=== PATIENT | male | born 2000 | race Two or more races ===

== ENCOUNTER 2018-09-20 21:26 | Emergency (ER) | payer OTHER ==
[2018-09-20] MEDS ORDERED: EPINEPHRINE INJ/PF 1 MG/1 ML AMPULE IM ONE (21:42)
[2018-09-20] MEDS ORDERED: NORMAL SALINE 1000 ML 1,000 ML IV ONE (21:43)
[2018-09-20] MEDS ORDERED: METHYLPREDNISOLONE INJ 125 MG/2 ML SDV IV ONE (21:43)
[2018-09-20] MEDS ORDERED: FAMOTIDINE INJ/PF 20 MG/2 ML SDV IV ONE (21:43)
--- NOTE | 2018-09-20 21:48 | ER Document Report ---
ED Medical Screen (RME) - General Chief Complaint: Allergic Reaction Stated Complaint: BEE STING Time Seen by Provider: 09/20/18 21:39 Notes: Pt. is a 18 y/o male presents to the emergency department for allergic reaction. Patient states prior to arrival to the emergency department he was stung by a bee in his right hand. Patient states he continues with generalized redness and hives all over his trunk and neck. Patient states his ears feel "full" and he also has some itching in his throat. Patient states he has had a reaction to bee sting before. States he never had to get epinephrine. LUNGS: Clear to auscultation bilaterally, no wheezes, rales, or rhonchi. No respiratory distress. Epinephrine IM ordered in triage. Charge nurse Alejandra notified. I have greeted and performed a rapid initial assessment of this patient. A com prehensive ED assessment and evaluation of the patient, analysis of test results and completion of the medical decision making process will be conducted by additional ED providers. I have specifically instructed the patient or family members with the patient to immediately return to any nursing staff should anything change in the patient's condition or with their chief complaint. This medical record was dictated with voice recognizing software. There may be grammatical, syntax errors that are unintended. TRAVEL OUTSIDE OF THE [place] IN LAST 30 DAYS: No
--- NOTE | 2018-09-20 22:42 | ER Document Report ---
ED Allergic Reaction - General Chief Complaint: Allergic Reaction Stated Complaint: BEE STING Time Seen by Provider: 09/20/18 21:39 Notes: Patient is a 18-year-old male that comes to the emergency department for chief complaint of allergic reaction. He states he was stung on the right thumb by a bee this evening, shortly afterwards he started getting swelling of the hand, this developed into hives of the arm, abdomen, armpits. He states he started getting an itchy feeling in his throat and his ears felt full. He states last time he was stung by bee was 10 years ago and he had swelling and a rash to the area which resolved with just Benadryl. He did take 50 mg of Benadryl prior to arrival. He denies any other complaints, he denies any other medical history, he denies any daily medications. Significant other at bedside. TRAVEL OUTSIDE OF THE [place] IN LAST 30 DAYS: No - Related Data Allergies/Adverse Reactions: No Known Allergies Allergy (Unverified 09/21/18 01:10) Past Medical History - General Information source: Patient - Social History Smoking Status: Former Smoker Chew tobacco use (# tins/day): No Frequency of alcohol use: None Drug Abuse: None Lives with: Family Family History: Reviewed & Not Pertinent Patient has suicidal ideation: No Patient has homicidal ideation: No - Medical History Medical History: Negative Renal/ Medical History: Denies: Hx Peritoneal Dialysis Surgical Hx: Negative - Immunizations Immunizations up to date: Yes Hx Diphtheria, Pertussis, Tetanus Vaccination: Yes Review of Systems - Review of Systems Constitutional: No symptoms reported EENT: See HPI Cardiovascular: No symptoms reported Respiratory: No symptoms reported Gastrointestinal: No symptoms reported Genitourinary: No symptoms reported Male Genitourinary: No symptoms reported Musculoskeletal: See HPI Skin: See HPI Hematologic/Lymphatic: No symptoms reported Neurological/Psychological: No symptoms reported Physical Exam - Vital signs Vitals: Pulse Ox 100 09/20/18 22:46 - Notes Notes: GENERAL: Alert, interacts well. No acute distress. HEAD: Normocephalic, atraumatic. EYES: Pupils equal, round, and reactive to light. Extraocular movements intact. ENT: Oral mucosa moist, tongue midline. Oropharynx unremarkable. Airway patent. Nares patent, no nasal septal hematoma, TM's intact. NECK: Full range of motion. Supple. Trachea midline. LUNGS: Clear to auscultation bilaterally, no wheezes, rales, or rhonchi. No respiratory distress. HEART: Regular rate and rhythm. No murmur ABDOMEN: Soft, non-tender. Non-distended. Bowel sounds present in all 4 quadrants. GENITOURINARY: Deferred EXTREMITIES: Moves all 4 extremities spontaneously. No edema, normal radial and dorsalis pedis pulses bilaterally. No cyanosis. Soft tissue swelling over the right hand generally with what appears to be an insect sting over the dorsal aspect of the right thumb. Range of motion of the fingers intact, normal capillary refill and sensation, upper extremity examination is unremarkable otherwise. BACK: no cervical, thoracic, lumbar midline tenderness. No saddle anesthesia, normal distal neurovascular exam. Moves all extremities in full range of motion. NEUROLOGICAL: Alert and oriented x3. Normal speech. Cranial nerves II through XII grossly intact. PSYCH: Normal affect, normal mood. SKIN: Faint urticaria over the lower abdomen and in the axillary areas. Course - Re-evaluation Re-evalutation: On my initial evaluation patient is already received epinephrine. He states that the sensation in the back of his throat has resolved, his hand is significantly improved, the hives around his neck in triage are resolved, he onl y has faint hives now over his lower abdomen and axillary areas. Patient reevaluated twice more. He has received steroids, antihistamines. He has had only improvement of symptoms. Rash is completely gone, there is still mild soft tissue swelling of the hand but otherwise his examination is unremarkable. He has been here over 3 hours. He is requesting to leave. He will be provided with EpiPen, treatments at home, follow-up instructions, return precautions which were discussed in detail. Patient states satisfaction agreement. - Vital Signs Vital signs: Temp Pulse Resp BP Pulse Ox 21 H 99 09/21/18 01:00 09/21/18 01:00 Discharge - Discharge Clinical Impression: Hymenoptera sting Qualifiers: Encounter type: initial encounter Injury intent: accidental or unintentional Qualified Code(s): T63.481A - Toxic effect of venom of other arthropod, accidental (unintentional), initial encounter Allergic reaction Qualifiers: Encounter type: initial encounter Qualified Code(s): T78.40XA - Allergy, unspecified, initial encounter Condition: Stable Disposition: HOME, SELF-CARE Additional Instructions: Your evaluation is consistent with anaphylaxis from the bee sting. Take the prednisone as prescribed, take the Zyrtec and Pepcid daily for 1 week. In the event of a severe allergic reaction (swelling of the face, lips, tongue, throat, difficulty breathing, etc) take the EpiPen and immediately return to the emergency department. Return for any other concerning symptoms. Prescriptions: Cetirizine HCl [Zyrtec 10 mg Tablet] 1 tab PO DAILY #30 tablet Epinephrine [Epipen 2-Rusty] 0.3 mg IM ASDIR PRN #1 packet PRN Reason: Famotidine [Pepcid 20 mg Tablet] 20 mg PO DAILY #12 tablet Prednisone [Deltasone 10 mg Tablet] 10 mg PO ASDIR PRN #21 tablet PRN Reason:
[2018-09-21] MEDS ORDERED: OXYCODONE-ACETAMINOPHEN 5-325 MG TABLET PO ONE (00:11)
== END 2018-09-21 01:10 | disposition home or self-care (01) ==
LOC: ER 21:26
DX: T63.441A Toxic effect of venom of bees, accidental (unintentional), initial encounter (principal); L50.9 Urticaria, unspecified; R09.89 Other specified symptoms and signs involving the circulatory and respiratory systems; Z87.891 Personal history of nicotine dependence
CPT/HCPCS: 99282; 96372; 96361; 96374; 96375; J0171; J2930; J7030; S0028

== ENCOUNTER 2018-11-24 10:57 | Emergency (ER) | payer OTHER ==
--- NOTE | 2018-11-24 12:35 | ER Document Report ---
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 Patient reports this has been present since he was in the field. He states it is itchy and painful. He reports he has been trying to put creams to the area without relief. He denies any travel outside of the country. All immunizations are up-to-date. Past Medical History - General Information source: Patient - Social History Smoking Status: Former Smoker Frequency of alcohol use: None Drug Abuse: None Lives with: Alone Family History: Reviewed & Not Pertinent Patient has suicidal ideation: No Patient has homicidal ideation: No - Medical History Medical History: Negative Renal/ Medical History: Denies: Hx Peritoneal Dialysis Surgical Hx: Negative - Immunizations Immunizations up to date: Yes Hx Diphtheria, Pertussis, Tetanus Vaccination: Yes Vertical Provider Document - CONSTITUTIONAL Notes: PHYSICAL EXAMINATION: GENERAL: Well-appearing, well-nourished and in no acute distress. HEAD: Atraumatic, normocephalic. EYES: Pupils equal round extraocular movements intact, conjunctiva are normal. ENT: Nares patent NECK: Normal range of motion LUNGS: No respiratory distress Musculoskeletal: Normal range of motion NEUROLOGICAL: Normal speech, normal gait. PSYCH: Normal mood, normal affect. SKIN: Area of erythema noted to right medial thigh, no induration or fluctuance to suggest abscess. - INFECTION CONTROL TRAVEL OUTSIDE OF THE [place] IN LAST 30 DAYS: No Course - Re-evaluation Re-evalutation: Examination is most consistent with cellulitis. Will start patient on topical and oral antibiotics. Encourage patient to allow the area to stay open to air as much as possible. Close follow-up with his primary care provider. The patient's emergency department workup and current diagnosis were explained to the patient and or family. Follow-up instructions were provided. Medications if prescribed were discussed. Instructions for when to return to the emergency department including specific worrisome symptoms were discussed with the patient and/or family. - Vital Signs Vital signs: Temp Pulse Resp BP Pulse Ox 98.5 F 56 L 18 138/60 H 100 11/24/18 11:15 11/24/18 11:15 11/24/18 11:15 11/24/18 11:15 11/24/18 11:15 Discharge - Discharge Clinical Impression: Cellulitis Qualifiers: Site of cellulitis: unspecified site Qualified Code(s): L03.90 - Cellulitis, unspecified Condition: Stable Disposition: HOME, SELF-CARE Additional Instructions: Cellulitis You have an infection of your skin and underlying soft tissues called cellulitis. This is due to bacteria, which can enter through any break in the skin, or even through an irritated hair follicle. Untreated, cellulitis will usually worsen. Antibiotics are required. You should start getting better within 24 to 36 hours. Most infections respond quickly to the right medication. Follow-up care is important, however, to check for abscess (boil) formation, unsuspected foreign body, or resistant infection. If you develop fever, chills, or if the area of infection is becoming rapidly more swollen or painful, call the doctor at once. Prescriptions: Mupirocin [Bactroban 2% Ointment 22 gm] 1 applic TP BID #1 tube Cephalexin [Cephalexin 500 MG Tablet] 1 tab PO QID #40 tablet
[2018-11-24 12:36] VITALS: BP 123/57
== END 2018-11-24 12:35 | disposition home or self-care (01) ==
LOC: ER 10:57
DX: L03.90 Cellulitis, unspecified (principal); R21 Rash and other nonspecific skin eruption
CPT/HCPCS: 99282